=== PATIENT | male | born 1980 | race Caucasian/White ===

== ENCOUNTER 2023-07-02 14:38 | Emergency (ER) | payer OTHER ==
[~2023-07-02] VITALS: Ht 175.3 cm; Wt 80.0 kg
[2023-07-02 14:41] VITALS: O2SAT 99
[2023-07-02] MEDS ORDERED: LIDO700A15 TP (15:50)
[2023-07-02] MEDS ORDERED: BO1 TP (15:50)
[2023-07-02 16:34] VITALS: BP 112/78; PULSE 74; RESP 19; TEMP 98
== END 2023-07-02 16:36 | disposition home or self-care (01) ==
LOC: ER 14:38
DX: S16.1XXA Strain of muscle, fascia and tendon at neck level, initial encounter (principal); S00.91XA Abrasion of unspecified part of head, initial encounter; X58.XXXA Exposure to other specified factors, initial encounter; Y93.89 Activity, other specified; Y92.89 Other specified places as the place of occurrence of the external cause; Y99.8 Other external cause status
CPT/HCPCS: 99282